=== PATIENT | female | born 1955 | race Caucasian/White ===

== ENCOUNTER 2020-04-10 06:01 | Inpatient (IN) ==
[2020-04-05 11:18] LABS: Basophils % 0.4 % (0.0-0.8); Eosinophils # 0.2 10*3/uL (0.0-0.87); Eosinophils % 1.9 % (0.00-10.9); Hematocrit 39.7 VOL% (35.7-47.0); Immature Granulocytes % 0.3 %; Immature Granulocytes Absolute 0.03 #; Lymphocytes % 32.2 % (21.3-54.2); Mean Corpuscular HGB Conc 35.3 GM/DL (32-36); Mean Platelet Volume 8.8 FL (9.6-12.0); Monocytes % 5.7 % (1.7-12.7); Neutrophils % 59.5 % (38.7-73.9); Platelet Count 397 T/CUMM (130-400); Red Blood Count 4.41 MC/CUMM (3.8-5.5); White Blood Count 9.3 T/CUMM (4-12)
[2020-04-05 11:39] LABS: Eosinophils 3 % (0-10); Hypochromasia 1+; Lymphocytes 30 % (20-55); Microcytosis Slight; Segmented Neutrophils 63 % (50-85); Total Cells Counted 100
[2020-04-05 11:40] LABS: Platelet Estimate Normal
[2020-04-05 11:53] LABS: Albumin 3.7 G/DL (3.4-5.0); Bilirubin,Total 0.4 MG/DL (0.2-1.0); Calcium 9.6 MG/DL (8.5-10.1); Osmolality,Calculated 281.3 MOS/KG (273-304); Total Protein 7.3 G/DL (6.4-8.3)
[~2020-04-10 06:01] MED LIST: LEVOFLOXACIN 500 MG TABLET PO ONE
[2020-04-10] MEDS ORDERED: propofoL 200 MG/20 ML VIAL IV ONE (06:23)
[2020-04-10] MEDS ORDERED: MIDAZOLAM 2 MG/2 ML VIAL ONE (06:23)
[2020-04-10] MEDS ORDERED: ROCURONIUM 50 MG/5 ML VIAL IV ONE ×2 (06:23→08:28)
[2020-04-10] MEDS ORDERED: LIDOCAINE 2% 5 ML VIAL ONE (06:23)
[2020-04-10] MEDS ORDERED: SUCCINYLCHOLINE 200 MG/10 ML VIAL ONE (06:23)
[2020-04-10] MEDS ORDERED: fentaNYL 100 MCG/2 ML VIAL ONE ×2 (06:24→07:28)
[2020-04-10] MEDS ORDERED: MANNITOL 12.5 GM/50 ML VIAL IV ONE (06:29)
[2020-04-10] MEDS ORDERED: ROPIVACAINE 0.5% 30 ML VIAL ONE (06:31)
[2020-04-10] MEDS ORDERED: DEXAMETHASONE 4 MG/1 ML VIAL ONE ×2 (06:35→08:08)
[2020-04-10] MEDS ORDERED: FAMOTIDINE 20 MG/2 ML VIAL IV ONE (06:58)
[2020-04-10] MEDS ORDERED: LACTATED RINGERS 1,000 ML IV SCH (07:00)
[2020-04-10] MEDS ORDERED: ONDANSETRON 4 MG/2 ML VIAL ONE (08:08)
[2020-04-10] MEDS ORDERED: PHENYLEPHRINE 1 MG/10 ML SYRINGE IV ONE (08:08)
[2020-04-10] MEDS ORDERED: ePHEDrine 50 MG/ML VIAL ONE (08:22)
[2020-04-10] MEDS ORDERED: PHENYLEPHRINE DRIP 20 MG/250 ML PREMIX IV ONE (09:07)
[2020-04-10] MEDS ORDERED: INDOCYANINE GREEN 25 MG VIAL IV ONE (09:39)
[2020-04-10] MEDS ORDERED: LACTATED RINGERS 2,000 ML IV ONE (10:41)
[2020-04-10] MEDS ORDERED: SEVOFLURANE 1 UNIT/15 MINUTE INH ONE ×17 (10:47→11:45)
[2020-04-10] MEDS ORDERED: NEOSTIGMINE 10 MG/10 ML VIAL ONE (10:47)
[2020-04-10] MEDS ORDERED: GLYCOPYRROLATE 0.4 MG/2 ML VIAL ONE (10:47)
[2020-04-10] MEDS ORDERED: MAGNESIUM HYDROXIDE SUSP 30 ML UDCUP PO PRN (11:38)
[2020-04-10] MEDS ORDERED: LACTULOSE 20 GM/30 ML UDCUP PO PRN (11:38)
[2020-04-10] MEDS ORDERED: hydrALAZINE 25 MG TABLET PO PRN (11:38)
[2020-04-10] MEDS ORDERED: PROMETHAZINE 25 MG/1 ML VIAL IM PRN (11:38)
[2020-04-10] MEDS ORDERED: ALBUTEROL/IPRATROPIUM 3 ML NEB RESP TX ONE (11:44)
[2020-04-10] MEDS: ALBUTEROL/IPRATROPIUM 3 ML NEB RESP TX ONE ×2 (11:45→12:44)
[2020-04-10 11:47] LABS: Bilirubin,Urine Negative (Negative); Blood, Urine Negative (Negative); Glucose,Urine (UA) Negative (Negative); Ketones,Urine Negative (Negative); Mucus,Urine Occasional /LPF (Occasional); Nitrite,Urine Negative (Negative); Protein,Urine Negative; RBC,Urine <1 /HPF (0-4); Squamous Epithelial Cell,Urine Occasional /HPF (0-10); Urine Appearance CLEAR (Clear); Urine Color Yellow (Yellow); Urine Specific Gravity 1.016 (1.001-1.035); Urine Urobilinogen < 2.0 EU/DL (0.2-1.0); WBC,Urine <1 /HPF (0-6)
[2020-04-10] MEDS ORDERED: ALBUTEROL 1.25 MG/3 ML NEB RESP TX PRN (11:47)
[2020-04-10] MEDS: HYDROmorphone 2 MG/1 ML VIAL IV PRN ×7 (12:05→23:51)
[2020-04-10] MEDS ORDERED: ONDANSETRON 4 MG/2 ML VIAL IV PRN (12:06)
[2020-04-10 13:04] LABS: Basophils % 0.2 % (0.0-0.8); Hematocrit 33.8 VOL% (35.7-47.0); Hemoglobin 11.9 GM/DL (12.0-16.0); Immature Granulocytes % 0.4 %; Immature Granulocytes Absolute 0.06 #; Lymphocytes % 5.9 % (21.3-54.2); Mean Corpuscular HGB Conc 35.2 GM/DL (32-36); Mean Corpuscular Volume 91.6 FL (87-102); Mean Platelet Volume 8.4 FL (9.6-12.0); Monocytes % 1.4 % (1.7-12.7); Neutrophils % 92.1 % (38.7-73.9); Platelet Count 314 T/CUMM (130-400); Red Blood Count 3.69 MC/CUMM (3.8-5.5); Red Cell Distribution Width 12.2 % (9.3-17.3); White Blood Count 16.9 T/CUMM (4-12)
[2020-04-10 13:42] LABS: Calcium 8.1 MG/DL (8.5-10.1); Osmolality,Calculated 282.5 MOS/KG (273-304)
[2020-04-10 14:56] LABS: Platelet Estimate Normal
[2020-04-10] MEDS: SODIUM CHLORIDE 0.9% 1,000 ML IV SCH ×2 (14:56→21:40)
[2020-04-10] MEDS: ACETAMINOPHEN 325 MG TABLET PO SCH ×3 (14:56→23:55)
[2020-04-10] MEDS ORDERED: POTASSIUM CHLORIDE RIDER 10 MEQ in PREMIX 1 EACH IV PRN (16:21)
[2020-04-10] MEDS ORDERED: ALBUTEROL/IPRATROPIUM 3 ML NEB RESP TX PRN (16:32)
[2020-04-10] MEDS ORDERED: ZALEPLON 5 MG CAPSULE PO PRN (16:35)
[2020-04-10] MEDS ORDERED: GLUCAGON 1 MG VIAL IM PRN (16:35)
[2020-04-10] MEDS ORDERED: BISACODYL 5 MG TABLET PO PRN (16:35)
[2020-04-10] MEDS ORDERED: guaiFENesin/DM ER 600-30 MG TABLET PO PRN (16:35)
[2020-04-10] MEDS ORDERED: hydrALAZINE 20 MG/1 ML VIAL IV PRN (16:35)
[2020-04-10] MEDS ORDERED: DOCUSATE SODIUM 100 MG CAPSULE PO PRN (16:35)
[2020-04-10] MEDS ORDERED: DEXTROSE 50% 25 GM/50 ML VIAL IV PRN (16:35)
[2020-04-10] MEDS ORDERED: diphenhydrAMINE CAP 25 MG CAPSULE PO PRN (16:35)
[2020-04-10] MEDS: SIMETHICONE CHEW 125 MG TABLET PO PRN ×2 (17:10→23:55)
[2020-04-10] MEDS: ROSUVASTATIN 10 MG TABLET PO SCH (21:34)
[2020-04-10] MEDS: ONDANSETRON 4 MG/2 ML VIAL IV PRN (23:56)
[2020-04-11] MEDS: ONDANSETRON 4 MG/2 ML VIAL IV PRN ×3 (03:57→12:41)
[2020-04-11] MEDS: HYDROmorphone 2 MG/1 ML VIAL IV PRN (04:00)
[2020-04-11] MEDS: NICOTINE 21 MG/24 HR PATCH TRANSDERM PRN (04:06)
[2020-04-11] MEDS: SIMETHICONE CHEW 125 MG TABLET PO PRN ×4 (04:10→18:22)
[2020-04-11 06:08] LABS: Basophils % 0.1 % (0.0-0.8); Eosinophils % 0.1 % (0.00-10.9); Hematocrit 31.2 VOL% (35.7-47.0); Hemoglobin 10.9 GM/DL (12.0-16.0); Immature Granulocytes % 0.5 %; Immature Granulocytes Absolute 0.08 #; Lymphocytes # 2.1 10*3/uL (1.4-4.0); Lymphocytes % 12.4 % (21.3-54.2); Mean Corpuscular HGB Conc 34.9 GM/DL (32-36); Mean Corpuscular Volume 91.5 FL (87-102); Mean Platelet Volume 8.7 FL (9.6-12.0); Monocytes % 5.7 % (1.7-12.7); Neutrophils % 81.2 % (38.7-73.9); Platelet Count 329 T/CUMM (130-400); Red Blood Count 3.41 MC/CUMM (3.8-5.5); Red Cell Distribution Width 12.2 % (9.3-17.3); White Blood Count 16.7 T/CUMM (4-12)
[2020-04-11 06:38] LABS: Albumin 2.6 G/DL (3.4-5.0); Bilirubin,Total 0.6 MG/DL (0.2-1.0); Osmolality,Calculated 278.5 MOS/KG (273-304); Risk Ratio 3.29; Thyroid Stimulating Hormone 0.57 uIU/ml (0.358-3.74); Total Protein 5.9 G/DL (6.4-8.3); VLDL CHOLESTEROL 27.6 MG/DL
[2020-04-11] MEDS ORDERED: MAGNESIUM SULF RIDER 2 GM in PREMIX 1 EACH IV ONE (07:04)
[2020-04-11] MEDS: ACETAMINOPHEN 325 MG TABLET PO SCH ×3 (07:30→18:21)
[2020-04-11] MEDS: BUDESONIDE/FORMOTEROL 160-4.5 INHALER 6 GM INH SCH (08:55)
[2020-04-11] MEDS: LEVOFLOXACIN 500 MG TABLET PO SCH (08:55)
[2020-04-11] MEDS: POTASSIUM CHLORIDE 20 MEQ TABLET PO SCH ×2 (08:55→20:11)
[2020-04-11] MEDS: OXYBUTYNIN XL 5 MG TABLET PO SCH (08:55)
[2020-04-11] MEDS: PANTOPRAZOLE 40 MG TABLET PO SCH (08:55)
[2020-04-11] MEDS ORDERED: POTASSIUM CHLORIDE 20 MEQ TABLET PO SCH (09:00)
[2020-04-11] MEDS: SODIUM CHLORIDE 0.9% 1,000 ML IV SCH (09:52)
[2020-04-11] MEDS: oxyCODONE/ACETAMINOPHEN 5-325 MG TABLET PO PRN ×3 (12:41→20:12)
[2020-04-11] MEDS: ROSUVASTATIN 10 MG TABLET PO SCH (20:11)
[2020-04-12] MEDS: ACETAMINOPHEN 325 MG TABLET PO SCH ×3 (00:08→12:02)
[2020-04-12] MEDS: oxyCODONE/ACETAMINOPHEN 5-325 MG TABLET PO PRN ×4 (00:13→14:51)
[2020-04-12 06:16] LABS: Basophils % 0.2 % (0.0-0.8); Eosinophils # 0.1 10*3/uL (0.0-0.87); Eosinophils % 0.7 % (0.00-10.9); Hematocrit 31.3 VOL% (35.7-47.0); Hemoglobin 10.8 GM/DL (12.0-16.0); Immature Granulocytes % 0.3 %; Immature Granulocytes Absolute 0.04 #; Lymphocytes # 2.2 10*3/uL (1.4-4.0); Lymphocytes % 16.7 % (21.3-54.2); Mean Corpuscular HGB Conc 34.5 GM/DL (32-36); Mean Corpuscular Volume 92.1 FL (87-102); Mean Platelet Volume 8.6 FL (9.6-12.0); Monocytes % 6.2 % (1.7-12.7); Neutrophils % 75.9 % (38.7-73.9); Platelet Count 306 T/CUMM (130-400); Red Cell Distribution Width 12.2 % (9.3-17.3); White Blood Count 13.1 T/CUMM (4-12)
[2020-04-12 06:37] LABS: Calcium 8.4 MG/DL (8.5-10.1); Osmolality,Calculated 274.7 MOS/KG (273-304)
[2020-04-12] MEDS ORDERED: LOSARTAN/HCTZ 50-12.5 MG TABLET PO SCH (09:00)
[2020-04-12] MEDS ORDERED: POTASSIUM CHLORIDE 20 MEQ TABLET PO SCH (09:00)
[2020-04-12] MEDS: OXYBUTYNIN XL 5 MG TABLET PO SCH (09:15)
[2020-04-12] MEDS: PANTOPRAZOLE 40 MG TABLET PO SCH (09:15)
[2020-04-12] MEDS: LEVOFLOXACIN 500 MG TABLET PO SCH (09:16)
[2020-04-12] MEDS: BUDESONIDE/FORMOTEROL 160-4.5 INHALER 6 GM INH SCH (09:17)
[2020-04-12 11:19] VITALS: BP 146/83
[2020-04-12] MEDS: NICOTINE 21 MG/24 HR PATCH TRANSDERM PRN (12:05)
== END 2020-04-12 15:30 | disposition home or self-care (01) | DRG 658 ==
LOC: N.OR 06:01 → N.SDSINP 06:05 → N.4E 13:24
PROVIDERS: ADMIT Surgery; ATTEND Surgery